=== PATIENT | female | born 1960 | race Caucasian/White ===

== ENCOUNTER 2018-01-07 14:18 | Inpatient (IN) ==
--- NOTE | 2018-01-07 13:53 | History & Physical Report ---
Date of Encounter: 01/07/18 Time of Encounter: 13:53 24 Hour HP Update - Instructions Instructions: If the History and Physical is less than 30 days old and was completed prior to A.M. admission and or procedure and has NOT been updated on calendar day of procedure please complete this update prior to performing procedure. - Update Patient reports changes in Medical Condition: No Changes in examination, assessment, or condition: No Changes in Medication: No Preop tests/diagnostics Reviewed: Yes Surgery Remains Indicated: Yes Consent for Planned Operative Procedure(s) Verified: Yes - Pre-Operative Checklist Preoperative Checklist Indicated: No Prophylactic Antibiotic Ordered: Yes Is VTE Prophylaxis Indicated?: Yes
--- NOTE | 2018-01-07 14:51 | Anesthesia Evaluation PreOp ---
Date of Encounter: 01/07/18 Time of Encounter: 14:48 - Past History Planned Operation: Revision of R total knee arthroplasty Cardiac History: Denies any Significant Hx, Other (stress test in 2013 neg for ischemia EF 61%) Pulmonary History: Asthma, COPD, RM Dx DESIGN DRAFTER History: Denies Any Significant HX Other Medical History: Diabetes Type II, Thyroid (hypo), GERD, Other (bmi 44) Anesthesia History: Past Anesthesia (R TKR, section, yvan cts, R shoulder, R knee manipulatio), Problems (PONV) Alcohol Use: none Drug use: none Medications and Allergies OxyCODONE Immed Rel [Roxicodone 5 MG] 5 - 10 mg PO Q6HR PRN #30 tablet 01/30/15 [Rx] Albuterol Sulfate [Albuterol Inhaler] 2 puff IH Q4HR #1 hfa.aer.ad 02/26/16 [Rx] Allergy/AdvReac Type Severity Reaction Status Date / Time Benzonatate AdvReac Shakiness Verified 01/04/18 14:50 [From Valdemar Omer] - Meds/Allergy Pre-op Review Medications Reviewed: Yes Allergies Reviewed: Yes Beta Blockers on Current Med List: No Anesthesia Results - Labs Laboratory Tests 08/14/16 01/04/18 01/04/18 09:49 15:01 15:20 WBC 9.5 Hgb 13.9 Hct 43.5 Plt Count 195 PT INR APTT Sodium 142 Potassium 4.0 Chloride 105 Carbon Dioxide 29 BUN 23 H Creatinine 0.92 Glucose 111 H 01/04/18 15:20 WBC Hgb Hct Plt Count PT 11.5 INR 1.0 APTT 33.3 Sodium Potassium Chloride Carbon Dioxide BUN Creatinine Glucose - Imaging EKG: report reviewed (SINUS RHYTHM Electronically Signed On 01-05-2018 8:30:11 EDT by Ren Marroquin) Anesthesia Exam O2 Sat Height 1.55 m Weight 106.141 kg - HEENT Pupil (Motor): Pupils equal, EOMI Mallampati: II Teeth: Poor dentition Oral Opening: Greater than 3 - DESIGN DRAFTER LOC: Oriented DESIGN DRAFTER Motor: Normal RUE, Normal LUE, Normal RLE, Normal LLE, Normal Face DESIGN DRAFTER Sensory: Normal: RUE, LUE, RLE, LLE, Face - Cardiac Rhythm: Regular - Pulmonary Breath Sounds: bilateral Clear Respiratory Effort: Symmetrical Anesthesia Assess/Plan ASA Score: 3 Modified Kaylene Scale for Level of Consciousness: Cooperative, oriented, and tranquil Anesthetic Plan: General (TIVA), Regional (pt refuses spinal , R femoral and ipack nn block) Monitoring Plan: Standard Monitors Recovery Plan: PACU
--- NOTE | 2018-01-07 14:53 | Discharge Summary ---
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 Priority: Primary Status: Chronic (2) Loosening of knee joint prosthesis Priority: Primary Status: Chronic Qualifiers: Encounter type: subsequent encounter Qualified Code(s): T84.038D - Mechanical loosening of other internal prosthetic joint, subsequent encounter; Z96.659 - Presence of unspecified artificial knee joint (3) Morbid obesity with BMI of 40.0-44.9, adult Priority: Secondary Status: Chronic (4) Asthma Priority: Secondary Status: Chronic Qualifiers: Asthma severity: unspecified severity Asthma persistence: unspecified Asthma complication type: uncomplicated Qualified Code(s): J45.909 - Unspecified asthma, uncomplicated (5) Obstructive sleep apnea Priority: Secondary Status: Chronic (6) Diabetes type 2, controlled Priority: Secondary Status: Chronic Qualifiers: Diabetes mellitus terminal make up operator insulin use: unspecified terminal make up operator insulin use status Diabetes mellitus complication status: without complication Qualified Code(s): E11.9 - Type 2 diabetes mellitus without complications - Hospital Course Hospital course: Ms. Moreno is a 57 year old female - Time Spent with Patient Total time spent providing and/or coordinating discharge services: - Discharge Medications Prescriptions: HYDROcodone/Acet 5/325 mg [[place] 5-325 mg] 1 tab PO Q6H PRN 5 Days #20 tab PRN Reason: Pain Home Medications: Albuterol Sulfate [Albuterol Inhaler] 2 puff IH BID PRN 01/07/18 [History] Aspirin Enteric Coated [Aspirin EC] 325 mg PO BID #20 tablet.dr 01/07/18 [Rx] BuPROPion [Wellbutrin] 100 mg PO BID 01/07/18 [History] Diclofenac Sodium [Voltaren] 1 appl TP QID PRN 01/07/18 [History] Duloxetine HCl [Cymbalta] 60 mg PO HS 01/07/18 [History] Ferrous Sulfate [Iron] 325 mg PO DAILY 01/07/18 [History] Fluticasone Propionate Nasal [Flonase] 1 spr NS DAILY PRN 01/07/18 [History] Fluticasone Propionate [Flovent Diskus] 1 puff IH BID PRN 01/07/18 [History] Guaifenesin [Mucinex] 600 mg PO Q12H PRN 01/07/18 [History] HYDROcodone/Acet 5/325 mg [[place] 5-325 mg] 1 tab PO DAILY PRN 01/07/18 [History] Levothyroxine [Synthroid] 112 mcg PO 0630 01/07/18 [History] Meloxicam [Mobic] 7.5 mg PO BID 01/07/18 [History] Metformin HCl 500 mg PO BID 01/07/18 [History] Montelukast [Singulair] 10 mg PO DAILY 01/07/18 [History] OxyCODONE Immed Rel [Roxicodone 5 MG] 5 mg PO Q6HR PRN 5 Days #20 tablet 01/07/18 [Rx] Sennosides/Docusate Sodium [Senna-S Laxative Tablet] 1 tab PO HS PRN 01/07/18 [History] Turmeric Root Extract [Turmeric] 500 mg PO DAILY 01/07/18 [History] Albuterol Neb [Proventil Neb] 2.5 mg IH Q4HR PRN 01/08/18 [History] HYDROcodone/Acet 5/325 mg [[place] 5-325 mg] 1 tab PO Q6H PRN 5 Days #20 tab 01/08/18 [Rx] Allergies/Adverse Reactions: Allergy/AdvReac Type Severity Reaction Status Date / Time acetaminophen [From Percocet] AdvReac Itching Verified 01/08/18 10:04 Benzonatate AdvReac Shakiness Verified 01/04/18 14:50 [From Tessalon Perles] Oxycodone [From Percocet] AdvReac Itching Verified 01/08/18 10:18 Primary care physician: Mirna Monroe CNP - Patient Status Disposition: Home Health Service Condition: Good - Discharge Instructions Follow Up With: Mirna Monroe CNP [Primary Care Provider] - Additional Instructions: Discharge Instructions: Total Knee Replacement Please call [facility] ([phone]), your Primary Care Physician, or report to the Emergency Room if you have any of the following symptoms: Nausea, vomiting, fever greater that 101.5, swelling, chest pain, shortness of breath, increased pain/redness/drainage/odor for your incision site, numbness/tingling, or any other concerning symptoms. ACTIVITY:Weight-bearing as tolerated. You may progress off support (crutches or walker) as tolerated. Incentive Spirometer 10 times an hour. MEDICATIONS: Upon discharge resume your home medications. Take all the medi cations as prescribed. Take a stool softener if taking narcotic pain medications. Stool softeners are only effective if you drink enough fluids. Drink 6-8 glass of water or fluids a day, unless this is not allowed for another health problem. Despite using stool softeners, if you haven't had a bowel movement in 3 days, please switch to a gentle laxative. Gentle laxatives are sold over the counter. You should have a bowel movement within 24 hours, if not call the office. You will be discharged from the hospital with a prescription for pain medication. You are encouraged to decrease the use of narcotic pain medication as tolerated. Should you require a refill, please call the office. [facility] prescribes narcotic pain medication for only 4-6 weeks after surgery. If you require pain medication beyond this time period, you may be referred to your Primary Care Physician or to the Pain Clinic for further evaluation. Plan ahead for refills on pain medication as many narcotics either need to be picked up at the office or mailed. It is best to call 48-72 hours in advance of needing a prescription refill so you don't run out of medication. To help control the post-operative pain, you may take NSAIDs (Aleve,Advil, Motrin, Ibuprofen, Naprosyn) or Tylenol as prescribed on the bottle in addition to the pain medication. ANTICOAGULATION (blood thinners): Continue your Aspirin, Lovenox or Coumadin as prescribed to help prevent a blood clot in the leg or in the lungs. As long as your incision remains dry and you tolerate the NSAIDs (Aleve, Advil, Motrin, ibuprofen, naprosyn), it is OK to use the NSAIDS while you are taking your anticoagulation medication. Should your incision start to drain, stop the NSAID and contact our office. Common symptoms of blood clot in the legs include: localized pain, swelling, calf tenderness, redness or discoloration of the skin. Blood clot in the lung symptoms include: shortness of breath, rapid pulse, sweating, and chest pain that worsens with deep breathing, coughing up blood, lightheadedness, feelings of anxiety. If you experience any of these symptoms notify your physician immediately, go to the emergency room, or if having trouble breathing, call 911. WOUND CARE: Leave the dressing on for 7 to 10days. You may change the dressing if it becomes saturated greater than 50%. Do not get the dressing wet at anytime. Wash your hands with antibacterial soap, rinse and dry prior to any wound care. If you have taj the visiting nurse or rehab facility can remove the stapes 10-14 days after surgery and place steri-strips across the wound. Leave the steri-strips in place until they fall off on their won. You may let water from the shower run on top of the steri-strips. If you do not have a visiting nurse or rehab facility, you will need to return to the office at 10-14 days for the taj to be removed. If you have itching or redness around the dressing call the office. FOLLOW-UP: Please follow up with your surgeon in the orthopedic clinic in 4 weeks from the day of surgery. If you have taj that need to be removed, you will need to come back to the office in 10-14 days from the day of surgery. <Cassie Mckeon - Last Filed: 01/10/18 17:09> Orders not resulted at time of discharge: Pending orders 01/07/18 Culture,Anaerobic [RM] Routine 01/07/18 15:03 US anesthesia pain block [US] Stat 01/07/18 17:59 Surgical Pathology [PTH] Routine Date of Encounter: 01/09/18 Time of Encounter: 17:05 - Discharge Diagnosis (1) Status post revision of total replacement of right knee Priority: Primary Status: Acute (2) Loosening of knee joint prosthesis Priority: Primary Status: Chronic Qualifiers: Encounter type: subsequent encounter Qualified Code(s): T84.038D - Mechanical loosening of other internal prosthetic joint, subsequent encounter; Z96.659 - Presence of unspecified artificial knee joint (3) 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 Priority: Primary Status: Chronic (4) Asthma Priority: Secondary Status: Chronic Qualifiers: Asthma severity: unspecified severity Asthma persistence: unspecified Asthma complication type: uncomplicated Qualified Code(s): J45.909 - Unspecified asthma, uncomplicated (5) Diabetes type 2, controlled Priority: Secondary Status: Chronic Qualifiers: Diabetes mellitus custodial insulin use: unspecified terminal make up operator insulin use status Diabetes mellitus complication status: without complication Qualified Code(s): E11.9 - Type 2 diabetes mellitus without complications (6) Morbid obesity with BMI of 40.0-44.9, adult Priority: Secondary Status: Chronic (7) Obstructive sleep apnea Priority: Secondary Status: Chronic - Hospital Course Hospital course: Ms. Moreno is a 57 year old female status post Right TKR revision 01/07/18 with history of DMT2, RM, asthma, obesity. she has uneventful hospital admission. She participated in therapy. Dr. Arzate evaluated patient at time of discharge and was stable at discharge. - Time Spent with Patient Total time spent providing and/or coordinating discharge services: Date of admission: 01/08/18 06:47 Primary care physician: Mirna Monroe CNP Consults: 01/07/18 19:31 Consult to Orthopedic Navigator [CONS] [CONS] Routine Consult to Physical Therapy [CONS] Routine Comment: Evaluate, develop and impliment POC Reason for Consult: post knee surgery Does patient have active BEDREST order?: No Is patient medically & hemodynamically stable?: Yes Consult to Associate Quality Engineer [CONS] Routine Reason for SW Consult: post op joint replacement RT Post Op Consult [CONS] Routine Discharging clinician: Alec Arzate Anticipated date of discharge: 01/09/18 Labs on day of discharge: Labs from last 24 hours 01/09/18 15:56 POC Glucose 125 H Preliminary micro results at discharge 01/07/18 Unknown Anaerobic Culture - Preliminary Right Knee At this time, no anaerobic growth is present. The culture will be finalized after 5 days of incubation. - Impressions ITS Impressions Knee X-Ray 01/07/18 13:53 IMPRESSION: Uncomplicated right total knee arthroplasty D/ / 01/07/2018 18:34:11 Soy Moran MD / [facility] Interpreting Provider: Soy Moran MD - Patient Status Overall status at discharge: patient is back to baseline - Diet and Activity Activity: as per physical therapy Diet: advance to your usual diet
[2018-01-07] MEDS ORDERED: Scopolamine Patch 1.5 MG PATCH.TD72 ONE (15:08)
[2018-01-07] MEDS ORDERED: Acetaminophen IV 1,000 MG/100 ML INFUS..BTL ONE (15:08)
[2018-01-07] MEDS ORDERED: ROPIVACAINE HCL/PF 0.5% 30 ML VIAL ONE (15:53)
[2018-01-07] MEDS ORDERED: Bupivacaine/Clonidine Syringe 1 EACH SYRINGE ONE (15:53)
[2018-01-07] MEDS ORDERED: CeFAZolin Syr 2,000MG/20 ML 2,000 MG/20 ML SYRINGE IVPB ONE (16:01)
[2018-01-07] MEDS ORDERED: Albuterol 2.5 MG/3 ML NEBULIZER IH ONE (16:01)
[2018-01-07] MEDS ORDERED: *HR* FentaNYL (PF) 100 MCG/2 ML VIAL ONE (16:08)
[2018-01-07] MEDS ORDERED: Ondansetron 4 MG/2 ML VIAL ONE (16:08)
[2018-01-07] MEDS ORDERED: Lidocaine -MPF 2% 2 ML VIAL ONE (16:08)
[2018-01-07] MEDS ORDERED: *HR* Propofol 200 MG/20 ML VIAL IVP ONE (16:08)
[2018-01-07] MEDS ORDERED: Dexamethasone 4 MG/ML VIAL ONE (16:08)
[2018-01-07] MEDS ORDERED: Ethanol\\Acetic Acid\\Na Ace\\Ben 1,000 ML IRRIG.SOLN IR ONE (16:09)
[2018-01-07] MEDS ORDERED: *HR* Midazolam HCl 2 MG/2 ML VIAL ONE (16:12)
[2018-01-07] MEDS ORDERED: Propofol 500 MG/50 ML INFUS..BTL ONE ×2 (16:13→17:17)
[2018-01-07] MEDS ORDERED: Ringers Solution, Lactated 1,000 ML IVC SCH ×2 (16:15→19:31)
--- NOTE | 2018-01-07 16:44 | Anesthesia Procedures ---
Date of Encounter: 01/07/18 Time of Encounter: 16:35 Procedures: Anesthesia - Nerve Block Procedure Date: 01/07/18 Time: 16:35 Allergies/Adv Reactions: benzonatate Surgical Procedure: right TK rev Checklist: Correct Patient Identifier, Correct procedure, History checked Correct side: Right Blood Thinner: No Monitor Applied: EKG, BP, Pulse Oximetry Supplemental Oxygen via Nasal Cannula (L/min): 2 Sedation: Versed (mg): 2 Sedation: Fentanyl (mcg): 100 Indication: Post Op Analgesia Pre-op Neuro Deficits: No Block Type: Femoral, Other (ipack 20ml) Catheter placed: No Sterile Technique: Yes Ultrasound used: Yes Anatomy identified: Yes Visual spread of Local: Yes Neuro Stimulation: Yes (femoral only) Nerve Stimulator Range: 0.2 - 0.4 mA Blood on Needle Aspiration: No Smooth Injection of Local: Yes Pain with Injection of Local: No Prep: Chlorhexadine Needle: 22 x 50 mm Stimuplex (femoral), 21 x 100 mm Stimuplex (ipack) Local: 0.25% Bupivicaine w/Clonidine 20 mcg/cc (ipack 20ml), Ropivacaine (30ml) Volume (cc): 50 Number of Attempts: 1 Complications: None/effective block Vitals: Vital Signs/O2 Sat/Glucose, Most Recent Pulse Resp BP Pulse Ox 99 16 155/111 100 01/07/18 16:32 01/07/18 16:32 01/07/18 16:32 01/07/18 16:32
--- NOTE | 2018-01-07 16:48 | Physician Discharge Referral ---
Home Health/Hosp Referral Info Transfer to: Home Health Attending Provider: Dr. 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 For more information, call the [place] Tobacco Quit Line at 1-757-WCWI-NOW. - Diet/Nutrition Diet/Nutrition Orders: Regular - Activity Activity Orders: Ambulate, Chair - Services Needed Following services are medically necessary services: Nursing, Home Health Aide, Physical Therapy, Occupational Therapy Home Care Orders: Knee Continuity: Opsite dressing, leave intact until first post-operative visit. If dressing becomes >50% saturated, contact office, remove dressing and place appropriate dressing in its place. Do not allow for dressing to get wet. Zipline/Topaz in place, plan to remove at post-operative day #14-16. Total Joint Precautions x 6 weeks Apply cold therapy wrap 3-6x/day for 20 minutes at a time. Encourage ambulation throughout the day Use Incentive spirometer 10x/hour. Elevate affected extremity above heart as tolerated. Brace: Wear knee immobilizer at night x 2 weeks. - Transfer Medications Prescriptions: OxyCODONE Immed Rel [Roxicodone 5 MG] 5 mg PO Q6HR PRN 5 Days #20 tablet PRN Reason: Pain Aspirin Enteric Coated [Aspirin EC] 325 mg PO BID #20 tablet. Home Medications: OxyCODONE Immed Rel [Roxicodone 5 MG] 5 - 10 mg PO Q6HR PRN #30 tablet 01/30/15 [Rx] Albuterol Sulfate [Albuterol Inhaler] 2 puff IH Q4HR #1 hfa.aer.ad 02/26/16 [Rx] Albuterol Sulfate [Albuterol Inhaler] 1 puff IH 1-2XD PRN MDD 4 puffs 01/07/18 [History] Aspirin Enteric Coated [Aspirin EC] 325 mg PO BID #20 tablet. 01/07/18 [Rx] BuPROPion [Wellbutrin] 100 mg PO BID 01/07/18 [History] Diclofenac Sodium [Voltaren] 100 gm TP PRN PRN 01/07/18 [History] Docusate Sodium-Senna Tablet 01/07/18 [History] Duloxetine HCl [Cymbalta] 60 mg PO HS 01/07/18 [History] Ferrous Sulfate [Iron] 325 mg PO DAILY 01/07/18 [History] Fluticasone Propionate Nasal [Flonase] 50 mcg NS PRN PRN 01/07/18 [History] Fluticasone Propionate [Flovent Diskus] 100 mcg IH PRN PRN 01/07/18 [History] Guaifenesin [Mucinex] 600 mg PO PRN PRN 01/07/18 [History] HYDROcodone/Acet 5/325 mg [[place] 5-325 mg] 1 tab PO Q6H PRN 01/07/18 [History] Levothyroxine [Synthroid] 112 mcg PO 0630 01/07/18 [History] Meloxicam [Mobic] 7.5 mg PO PRN PRN 01/07/18 [History] Metformin HCl 500 mg PO 01/07/18 [History] Montelukast [Singulair] 10 mg PO DAILY 01/07/18 [History] OxyCODONE Immed Rel [Roxicodone 5 MG] 5 mg PO Q6HR PRN 5 Days #20 tablet 01/07/18 [Rx] Turmeric Root Extract [Turmeric] 500 mg PO 01/07/18 [History] Allergies/Adverse Reactions: Allergy/AdvReac Type Severity Reaction Status Date / Time Benzonatate AdvReac Shakiness Verified 01/04/18 14:50 [From Valdemar Omer] Certification: Further, I certify that my clinical findings support that this patient is homebound (i.e. absences from home require considerable and taxing effort and are for medical reasons or synagogue services or infrequently or short duration when for other reasons) because: Homebound Reason: Post-surgery restriction and or conditions limit ability to leave home Attestation: My signature below is to certify that this patient is under my care and that I, or nurse practitioner, or a physician cement tester assistant working with me, has a [id number] encounter with this patient.
[2018-01-07] MEDS ORDERED: *HR* Succinylcholine 200 MG/10 ML VIAL IVP ONE (16:52)
[2018-01-07] MEDS ORDERED: *HR* Promethazine 25 MG/ML VIAL IVP PRN (17:10)
[2018-01-07] MEDS ORDERED: *HR* OxyCODONE Immed Rel 5 MG TABLET PO PRN (17:10)
[2018-01-07] MEDS ORDERED: Ondansetron 4 MG/2 ML VIAL IVP ONE (17:10)
[2018-01-07] MEDS ORDERED: *HR* Meperidine 25 MG/ML SYRINGE IVP PRN (17:10)
--- NOTE | 2018-01-07 18:04 | Orthopedic Operative Note ---
Date of procedure: 01/07/18 Pre-op diagnosis: Aseptic loosening right total knee Post-op diagnosis: same Procedure: Procedure: Right revision total knee Estimated blood loss: 200 Hardware: Metal and polyethylene replacement. [place] femur: 2 PS Tibia: 3 TS: 16 Exam Under anesthesia: Full flexion and extension no varus valgus instability no swelling Procedural Notes: Loose tibia and femur no signs of infection Operative procedure: The patient was brought to the operating room and placed on the operating room table. After general anesthesia was administered the operative knee was examined. Findings were noted in the exam under anesthesia. The operative extremity was prepped and draped in sterile surgical fashion. The patient received IV antibiotics prior to skin incision. A standard midline incision was made centered over the patella through the old incision. The incision was made through the skin and subcutaneous tissue. A medial parapatellar tendon approach was performed. Care was taken to preserve tissue along the medial aspect of the patella. And to protect the patella tendon. The deep MCL was released off the medial tibia. The infra patella fat pad was excised. Fluid was encountered this was normal joint fluid, Cultures were obtained and gram . The knee was brought into flexion the poly-was removed. The interface between the patient's femoral component and distal femur were disrupted with a osteotome and oscillating saw. Femoral component loose and was removed removed without significant bone loss. Attention was then turned to the tibial component. The same technique was used to remove the tibial component by disrupting the interface between the patient's tibial component and the patients proximal tibia. The tibial component was loose, was removed without significant bone loss. The tibia was sized to a 3. Prepared with the large drill followed by the fin cutter. Trial had good fit and fixation. The femur was sized to a 2, The finishing guide was seated and the box cut was made. The trial had good fit and fixation. Both trial components were seated and the 16 TS Arielle was seated and secured. The knee had full flexion and full extension with no instability. Patella had excellent patella tracking. The trial components were removed. The knee sat for 2 minutes with a antibacterial solution. It was irrigated out with 2 L of pulse irrigation. The tibia cemented first followed by the femur. The 16 constrained liner was seated and secure. The knee was brought to full extension while the cement hardened. After the cement hardened the knee was irrigated out again. The extensor mechanism was closed with a running #2 Fiberwire suture and a running #2 PDS suture. The deep tissue was irrigated and closed deep with #1 PDS suture superf icially with 0 PDS suture. The skin was closed with skin taj. The patient was placed in a sterile dressing and postoperative brace. They were extubated and transferred to recovery room in stable condition. Anesthesia: GETA Surgeon: Alec Arzate Was there an material assistant present: No Estimated blood loss (cc): 200 Condition: stable Disposition: PACU
[2018-01-07 18:40] LABS: Hematocrit 40.2 % (35.3-44.9); Hemoglobin 12.7 g/dL (11.5-15.4)
--- NOTE | 2018-01-07 19:18 | Anesthesia Evaluation Post Op ---
Date of Encounter: 01/07/18 Time of Encounter: 19:17 - Vital Signs Vital Signs: Vital Signs/O2 Sat, Most Current Temp Pulse Resp BP Pulse Ox 97.4 F L 87 24 140/82 98 01/07/18 18:24 01/07/18 18:34 01/07/18 18:34 01/07/18 18:34 01/07/18 18:34 - Lungs Lungs: Clear Ascult./Percussion - Airway Airway: Non-obstructed - Cardiovascular Regular Rate - Mental Status Mental Status: Asleep with brisk response to light stimulation - Nausea Vomiting Nausea Vomiting: Not Present - Hydration Hydration: NPO - Discharge PostOp Status: Transfer Patient to floor
[2018-01-07] MEDS ORDERED: Temazepam 15 MG CAPSULE PO PRN (19:31)
[2018-01-07] MEDS ORDERED: *HR* Dextrose 50 % in Water (Syg) 50 ML SYRINGE IVP PRN (19:31)
[2018-01-07] MEDS ORDERED: *HR* OxyCODONE/APAP 5/325 TABLET PO PRN (19:31)
[2018-01-07] MEDS ORDERED: Ondansetron 4 MG/2 ML VIAL IVP PRN (19:31)
[2018-01-07] MEDS ORDERED: MOM Conc 10 ML UD.LIQ PO PRN (19:31)
[2018-01-07] MEDS ORDERED: traMADol 50 MG TABLET PO PRN (19:31)
[2018-01-07] MEDS ORDERED: Naloxone 0.4 MG/ML INJ IVP PRN (19:31)
[2018-01-07] MEDS ORDERED: Sennosides 8.6 MG TABLET PO PRN (19:31)
[2018-01-07] MEDS ORDERED: Dextrose Gel 15 GM/37.5 ML TUBE PO PRN ×2 (19:31)
[2018-01-07] MEDS ORDERED: D5% in Water 1,000 ML IVC PRN (19:31)
[2018-01-07] MEDS: Insulin LISPRO 300 UNITS/3 ML VIAL SQ SCH (22:08)
[2018-01-07] MEDS: *HR* OxyCODONE Immed Rel 5 MG TABLET PO PRN (22:22)
[2018-01-08] MEDS: *HR* OxyCODONE Immed Rel 5 MG TABLET PO PRN (05:04)
[2018-01-08 05:21] LABS: Hematocrit 35.8 % (35.3-44.9); Hemoglobin 11.6 g/dL (11.5-15.4)
[2018-01-08 06:07] LABS: BUN/Creatinine Ratio 22 (6-26); Blood Urea Nitrogen 20 mg/dL (6-20); Calcium 8.7 mg/dL (8.6-10.3); Carbon Dioxide 30 mEq/L (23-29); Chloride 101 mEq/L (98-107); Glucose 159 mg/dL (70-105); Osmolality,Calculated 292 (280-300); Potassium 4.9 mEq/L (3.5-5.1); Sodium 138 mEq/L (136-145); eGFR For Non-African Americans > 60 (> 60)
--- NOTE | 2018-01-08 06:47 | Orthopedics Progress Note ---
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 Current Visit: Yes Status: Chronic (2) Loosening of knee joint prosthesis Current Visit: Yes Status: Chronic Qualifiers: Encounter type: subsequent encounter Qualified Code(s): T84.038D - Mechanical loosening of other internal prosthetic joint, subsequent encounter; Z96.659 - Presence of unspecified artificial knee joint (3) Morbid obesity with BMI of 40.0-44.9, adult Current Visit: Yes Status: Chronic (4) Asthma Current Visit: Yes Status: Chronic Qualifiers: Asthma severity: unspecified severity Asthma persistence: unspecified Asthma complication type: uncomplicated Qualified Code(s): J45.909 - Unspecified asthma, uncomplicated (5) Obstructive sleep apnea Current Visit: Yes Status: Chronic (6) Diabetes type 2, controlled Current Visit: Yes Status: Chronic Qualifiers: 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 Afebrile vital signs stable. Operative extremity: Neurovascularly intact Dressing clean dry and intact Calves nontender Assessment and plan: Continue with postoperative care Patient morbidly obese, status post revision right knee surgery, patient is unable to go home today will require further physical therapy for possible disch arge home tomorrow or the following day, patient will be converted to inpatient status. Objective Vital signs: Vital Signs Temp Pulse Resp BP Pulse Ox 01/08/18 03:22 98.2 F 86 17 112/75 95 01/07/18 23:37 97.5 F L 105 17 110/73 92 01/07/18 19:00 98.4 F 93 16 143/85 97 01/07/18 18:34 87 24 140/82 98 01/07/18 18:24 97.4 F L 81 27 130/80 99 01/07/18 18:14 86 28 133/71 98 01/07/18 18:04 89 28 130/76 96 01/07/18 17:54 97.1 F L 86 26 133/74 95 01/07/18 16:32 99 16 155/111 100 01/07/18 16:05 98.5 F 99 16 155/111 100 Intake and Output 01/07/18 01/07/18 01/08/18 15:59 23:59 07:59 Output Total 200 / 200 Balance -200 / -200 Output: Estimated Blood Loss 200 / 200 Other: # Voids 1 1 Weight 106.141 kg 106.15 kg Blood Glucose* 210 - Labs CBC & BMP: 01/08/18 04:59 01/08/18 04:59 Labs: Abnormal lab results Carbon Dioxide 30 mEq/L (23-29) H 01/08/18 04:59 Glucose 159 mg/dL (70-105) H 01/08/18 04:59 POC Glucose 210 mg/dL (70-99) H 01/07/18 20:11 Consult Discharge Plan - Plan Referrals: Mirna Monroe CNP [Primary Care Provider] - Prescriptions: Aspirin Enteric Coated [Aspirin EC] 325 mg PO BID #20 tablet.dr BurrDONNohemi Immed Rel [Roxicodone 5 MG] 5 mg PO Q6HR PRN 5 Days #20 tablet PRN Reason: Pain
[2018-01-08] MEDS: Insulin LISPRO 300 UNITS/3 ML VIAL SQ SCH ×4 (08:29→21:19)
[2018-01-08] MEDS ORDERED: *HR* HYDROcodone/Acet 5/325 mg TABLET PO PRN (10:15)
[2018-01-08] MEDS ORDERED: NON-FORMULARY MEDICATION 1 EACH EACH (Diclofenac Sodium [Voltaren] 100 GM) TP PRN (12:22)
[2018-01-08] MEDS ORDERED: Fluticasone Propionate Nasal 50 MCG/SPRAY BOTTLE NS PRN (12:22)
[2018-01-08] MEDS ORDERED: Beclomethasone 80mcg MDI IH PRN (12:22)
[2018-01-08] MEDS: *HR* Enoxaparin 30 MG/0.3 ML SYRINGE SQ SCH ×2 (12:59→17:01)
[2018-01-08] MEDS: *HR* HYDROcodone/Acet 10/325 mg TABLET PO PRN ×2 (13:02→21:17)
[2018-01-08] MEDS: *HR* Metformin 500 MG TABLET PO SCH (21:17)
[2018-01-09] MEDS: *HR* HYDROcodone/Acet 10/325 mg TABLET PO PRN ×2 (04:18→16:33)
[2018-01-09] MEDS: *HR* Enoxaparin 30 MG/0.3 ML SYRINGE SQ SCH ×2 (06:02→16:34)
[2018-01-09 07:55] LABS: Hematocrit 34.4 % (35.3-44.9); Hemoglobin 11.2 g/dL (11.5-15.4)
--- NOTE | 2018-01-09 08:05 | Orthopedics Progress Note ---
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 Current Visit: Yes Status: Chronic (2) Loosening of knee joint prosthesis Current Visit: Yes Status: Chronic Qualifiers: Encounter type: subsequent encounter Qualified Code(s): T84.038D - Mechanical loosening of other internal prosthetic joint, subsequent encounter; Z96.659 - Presence of unspecified artificial knee joint (3) Morbid obesity with BMI of 40.0-44.9, adult Current Visit: Yes Status: Chronic (4) Asthma Current Visit: Yes Status: Chronic Qualifiers: Asthma severity: unspecified severity Asthma persistence: unspecified Asthma complication type: uncomplicated Qualified Code(s): J45.909 - Unspecified asthma, uncomplicated (5) Obstructive sleep apnea Current Visit: Yes Status: Chronic (6) Diabetes type 2, controlled Current Visit: Yes Status: Chronic Qualifiers: Diabetes mellitus rn long term care insulin use: unspecified penitentiary insulin use status Diabetes mellitus complication status: without complication Qualified Code(s): E11.9 - Type 2 diabetes mellitus without complications Subjective Interval history: Patient was seen this morning feeling unsteady on her feet, will require 1 more day physical therapy in hospital. Afebrile vital signs stable. Operative extremity: Neurovascularly intact Dressing clean dry and intact Calves nontender Assessment and plan: Continue with postoperative care Plan for discharge tomorrow Objective Vital signs: Vital Signs Temp Pulse Resp BP Pulse Ox 01/09/18 06:39 98.4 F 85 15 151/89 93 01/09/18 03:48 98.7 F 92 18 129/79 95 01/08/18 22:53 99.2 F 89 18 129/76 93 01/08/18 20:24 98.6 F 88 18 139/71 94 01/08/18 15:41 98.1 F 89 18 127/66 92 01/08/18 11:09 98.2 F 83 16 118/73 94 01/08/18 09:50 86 117/66 Intake and Output 01/08/18 01/09/18 01/09/18 23:59 07:59 15:59 Intake Total 840 / 840 Balance 840 / 840 Intake: Oral 840 / 840 Other: Meal Dinner Percent of Meal Consumed 100% # Voids 1 1 Weight 108.46 kg Blood Glucose* 108 124 Patient Weight 01/09/18 23:59 Weight 108.46 kg - Labs CBC & BMP: 01/08/18 04:59 01/08/18 04:59 Labs: Abnormal lab results Carbon Dioxide 30 mEq/L (23-29) H 01/08/18 04:59 Glucose 159 mg/dL (70-105) H 01/08/18 04:59 POC Glucose 108 mg/dL (70-99) H 01/08/18 20:21 Consult Discharge Plan - Plan Referrals: Mirna Monroe CNP [Primary Care Provider] - Prescriptions: HYDROcodone/Acet 5/325 mg [[place] 5-325 mg] 1 tab PO Q6H PRN 5 Days #20 tab PRN Reason: Pain
[2018-01-09 08:15] LABS: BUN/Creatinine Ratio 19 (6-26); Blood Urea Nitrogen 16 mg/dL (6-20); Calcium 8.6 mg/dL (8.6-10.3); Carbon Dioxide 30 mEq/L (23-29); Chloride 103 mEq/L (98-107); Glucose 127 mg/dL (70-105); Osmolality,Calculated 289 (280-300); Potassium 4.1 mEq/L (3.5-5.1); Sodium 138 mEq/L (136-145); eGFR For Non-African Americans > 60 (> 60)
[2018-01-09] MEDS: Insulin LISPRO 300 UNITS/3 ML VIAL SQ SCH ×3 (08:47→16:30)
[2018-01-09] MEDS: *HR* Metformin 500 MG TABLET PO SCH (08:54)
[2018-01-09 18:00] VITALS: BP 159/87
== END 2018-01-09 18:18 | disposition home health service (06) | DRG 467 ==
LOC: SAMDAY 14:18 → 3NENU 19:00
PROVIDERS: ADMIT Orthopaedic Surgery; ATTEND Orthopaedic Surgery